=== PATIENT | female | born 1980 | race African-American/Black ===

== ENCOUNTER 2020-04-12 00:07 | Emergency (ER) | payer SELFPAY ==
[~2020-04-12] VITALS: Ht 167.6 cm; Wt 68.0 kg
[~2020-04-12 00:07] MED LIST: AZIT250T PO; PRED20TA PO
[2020-04-12] MEDS ORDERED: SULF1TAB24 PO (01:53)
--- NOTE | 2020-04-12 01:54 | PHYS DOC ---
Past Medical History Past Medical History: Hypertension Additional Past Medical Histor: NON COMPLIANT HTN Past Surgical History: No Surgical History Smoking Status: Current Every Day Smoker Alcohol Use: Occasionally Drug Use: None General Adult EDM: Chief Complaint: DENTAL PROBLEM HPI: HPI: Female Patient is a 39 year old female who presents with complaints of dental pain. Patient reports this been going on for at least a week. However tonight is gotten to the point where she is looking for some intervention. She points to the right mandibular bicuspid. She denies any fever, chills or sweats. She is having some pain with chewing. She is not having any difficulty with p.o. intake however. No nausea no vomiting, no diarrhea. She describes the pain is achy, constant and nonradiating Review of Systems: Review of Systems: Constitutional: Denies fever or chills. [] Eyes: Denies change in visual acuity. [] HENT: Denies nasal congestion or sore throat. [] Respiratory: Denies cough or shortness of breath. [] Cardiovascular: Denies chest pain or edema. [] GI: Denies abdominal pain, nausea, vomiting, bloody stools or diarrhea. [] [] Heart Score: Risk Factors: Risk Factors: DM, Current or recent (<one month) smoker, HTN, HLP, family history of CAD, obesity. Risk Scores: Score 0 - 3: 2.5% MACE over next 6 weeks - Discharge Home Score 4 - 6: 20.3% MACE over next 6 weeks - Admit for Clinical Observation Score 7 - 10: 72.7% MACE over next 6 weeks - Early Invasive Strategies Allergies: Allergies: Allergies Coded Allergies Type Severity Reaction Last Updated Verified No Known Drug Allergies 04/21/19 No Physical Exam: PE: Constitutional: Well developed, well nourished, no acute distress, non-toxic appearance. [] HENT: Normocephalic, atraumatic, bilateral external ears normal, oropharynx moist, no oral exudates, nose normal. There was no asymmetry of the face, there was no gingival swelling or pointing abscess, tenderness of the bicuspid. Fl oor the mouth was unremarkable. [] Eyes: PERRLA, EOMI, conjunctiva normal, no discharge. [] Neck: Normal range of motion, no tenderness, supple, no stridor. [] [] Current Patient Data: Vital Signs: Vital Signs Date Time Temp Pulse Resp B/P (MAP) Pulse Ox O2 Delivery O2 Flow Rate FiO2 04/12/20 01:25 98.3 85 18 150/100 (117) 98 Room Air 98.3 EKG: EKG: [] Radiology/Procedures: Radiology/Procedures: [] Course & Med Decision Making: Course & Med Decision Making Pertinent Labs and Imaging studies reviewed. (See chart for details) 0152-patient was seen and examined. No evidence of an exigent medical or surgical problems identified at this time. I discussed reasons to return, treatment plan and need for follow-up. [] Dragon Disclaimer: Dragon Disclaimer: This electronic medical record was generated, in whole or in part, using a voice recognition dictation system. Departure Departure Disposition: HOME, SELF-CARE Condition: STABLE Referrals: NO PCP (PCP) Patient Instructions: Dental Caries Scripts Sulfamethoxazole/Trimethoprim (BACTRIM DS TABLET) 1 Each Tablet 1 TAB PO BID for 7 Days, #14 TAB 0 Refills Prov: JOVAN MCKENZIE MD 04/12/20 Justicifation of Admission Dx: Justifications for Admission: Justification of Admission Dx: N/A JOVAN MCKENZIE MD Apr 12, 2020 01:54
[2020-04-12] MEDS ORDERED: KETOROLAC 60 MG/2 ML VIAL. IM ONE (02:00)
[2020-04-12] MEDS ORDERED: SMZ/TMP 800/160MG TABLET. PO ONE (02:00)
[2020-04-12 02:26] VITALS: BP 170/101
== END 2020-04-12 02:26 | disposition home or self-care (01) ==
LOC: ER 00:07
DX: K08.89 Other specified disorders of teeth and supporting structures (principal); I10 Essential (primary) hypertension; F17.200 Nicotine dependence, unspecified, uncomplicated
CPT/HCPCS: 96372; 99283; J1885

== ENCOUNTER 2020-06-13 01:28 | Emergency (ER) | payer SELFPAY ==
[~2020-06-13] VITALS: Ht 160 cm; Wt 81.8 kg
[~2020-06-13 01:28] MED LIST changes: +SULF1TAB24 PO
[2020-06-13 02:06] LABS: BASO # 0.1 x10^3/uL (0.0-0.2); BASO % 1 % (0-3); EOS # 0.2 x10^3/uL (0.0-0.7); EOS % 3 % (0-3); HEMATOCRIT 33.9 % (36.0-47.0); LYMPH # 1.7 x10^3/uL (1.0-4.8); LYMPH % 28 % (24-48); MEAN CORPUSCULAR HEMOGLOBIN 26 pg (25-35); MEAN CORPUSCULAR HGB CONC 33 g/dL (31-37); MEAN CORPUSCULAR VOLUME 79 fL (79-100); MONO # 0.6 x10^3/uL (0.0-1.1); MONO % 9 % (0-9); NEUT # 3.6 x10^3/uL (1.8-7.7); NEUT % 59 % (31-73); PLATELET COUNT 428 x10^3/uL (140-400); RED BLOOD COUNT 4.28 x10^6/uL (3.50-5.40); RED CELL DISTRIBUTION WIDTH 15.3 % (11.5-14.5); WHITE BLOOD COUNT 6.1 x10^3/uL (4.0-11.0)
[2020-06-13 02:21] LABS: ANION GAP 9 (6-14); BLOOD UREA NITROGEN 11 mg/dL (7-20); CALCIUM 9.2 mg/dL (8.5-10.1); CARBON DIOXIDE 26 mmol/L (21-32); CHLORIDE 101 mmol/L (98-107); CREATININE 0.7 mg/dL (0.6-1.0); GFR 112.7; GLUCOSE 120 mg/dL (70-99); SODIUM 136 mmol/L (136-145)
[2020-06-13 02:27] LABS: ALBUMIN 3.6 g/dL (3.4-5.0); ALK PHOS 88 U/L (46-116); ALT (SGPT) 29 U/L (14-59); AST (SGOT) 22 U/L (15-37); DIRECT BILIRUBIN < 0.1 mg/dL (0.0-0.2); LIPASE 73 U/L (73-393); MAGNESIUM 2.1 mg/dL (1.8-2.4); TOTAL BILIRUBIN 0.2 mg/dL (0.2-1.0); TOTAL PROTEIN 7.9 g/dL (6.4-8.2)
[2020-06-13] MEDS ORDERED: diphenhydrAMINE 50 MG/ML VIAL IVP ONE (02:30)
[2020-06-13] MEDS ORDERED: PROCHLORPERAZINE 10 MG/2 ML VIAL. IV ONE (02:30)
[2020-06-13] MEDS ORDERED: DEXAMETHASONE SOD PHOS 20 MG/5 ML VIAL. IV ONE (02:30)
[2020-06-13] MEDS ORDERED: IV NORMAL SALINE 1000ML BAG 1,000 ML IV ONE (02:30)
[2020-06-13 02:45] LABS: BILIRUBIN,URINE NEGATIVE (NEG); CLARITY,URINE CLEAR; COLOR,URINE YELLOW; NITRITE,URINE NEGATIVE (NEG); PROTEIN,URINE NEGATIVE (NEG-TRACE); UROBILINOGEN,URINE 0.2 mg/dL (0.2 mg/dL)
[2020-06-13 03:10] LABS: PREG TEST PT QUAL NEGATIVE (NEG)
[2020-06-13 03:26] LABS: BACTERIA,URINE FEW /HPF (0-FEW); RBC,URINE OCC /HPF (0-2); WBC,URINE OCC /HPF (0-4)
--- NOTE | 2020-06-13 03:29 | RAD ---
CT head without contrast PQRS statement: CT scans at this facility use dose reduction including either automated exposure control, iterative reconstructions, and /or weight based radiation dosing via mA and kV modification when appropriate to reduce radiation dose to as low as reasonably achievable. HISTORY: Headache. FINDINGS: No intracranial hemorrhage, mass effect, hydrocephalus or infarction. There is streak artifact from the skull base across the irene resulting in indistinct density at the left prepontine cistern and ventral surface of the irene image 7, a small mass at this location would be difficult to exclude given the density of the artifact present at this location. No acute ischemic changes evident. Dense opacification of the right maxillary, ethmoid and sphenoid and frontal sinuses. Orbits, mastoids and bones are unremarkable. IMPRESSION: 1. Extensive right maxillary, sphenoid, ethmoid and frontal sinus disease with dense opacities suggesting inspissated secretions or allergic fungal sinus disease. 2. Indistinct density along the left prepontine cistern at a region of extensive streak artifact from the skull base, likely attributable to the extensive artifact present, a small mass at this location cannot be excluded. There is no mass effect upon the brainstem evident. Electronically signed by: Santosh Melgoza MD (06/13/2020 3:26 AM) [facility]
[2020-06-13 03:59] LABS: BARBITURATES NEG (NEG); BENZODIAZEPINES NEG (NEG); CANNABINOIDS NEG (NEG); COCAINE NEG (NEG); METHADONE NEG (NEG); OPIATES NEG (NEG); PHENCYCLIDINE NEG (NEG)
--- NOTE | 2020-06-13 04:07 | PHYS DOC ---
Past Medical History Past Medical History: Hypertension Additional Past Medical Histor: NON COMPLIANT HTN Past Surgical History: No Surgical History Smoking Status: Current Every Day Smoker Alcohol Use: Heavy Additional Information: DRINKS WHISKEY DAILY Drug Use: None Social History Narrative: ECSTASY General Adult EDM: Chief Complaint: HEADACHE HPI: HPI: 39-year-old female past medical history of hypertension (takes no daily routine medications, has no PMD), presents the ED with complaints of gradual onset left- sided headache that started yesterday but worsened after she did ecstasy and drink alcohol. Reports associated sinus pressure and is taking some "OTC sinus meds." No routine primary care physician. No recent antibiotics. Review of Systems: Review of Systems: Constitutional: Denies fever or chills. [] Eyes: Denies change in visual acuity. [] Or visual loss HENT: Denies nasal congestion or sore throat. [] Respiratory: Denies cough or shortness of breath. [] Cardiovascular: Denies chest pain or edema. [] GI: Denies abdominal pain, nausea, vomiting, bloody stools or diarrhea. [] : Denies dysuria. [] Musculoskeletal: Denies back pain or joint pain. [] Integument: Denies rash. [] Neurologic: Denies focal weakness or sensory changes. [] Or neck stiffness Endocrine: Denies polyuria or polydipsia. [] Lymphatic: Denies swollen glands. [] Psychiatric: Denies depression or anxiety. [] Heart Score: Risk Factors: Risk Factors: DM, Current or recent (<one month) smoker, HTN, HLP, family history of CAD, obesity. Risk Scores: Score 0 - 3: 2.5% MACE over next 6 weeks - Discharge Home Score 4 - 6: 20.3% MACE over next 6 weeks - Admit for Clinical Observation Score 7 - 10: 72.7% MACE over next 6 weeks - Early Invasive Strategies Current Medications: Current Medications Medications (Trade) Dose Ordered Sig/Julieth Start Time Stop Time Status Last Admin Dose Admin Dexamethasone Sodium Phosphate (Decadron) 10 mg 1X ONCE 06/13/20 02:30 06/13/20 02:31 DC 06/13/20 02:23 10 MG Diphenhydramine HCl (Benadryl) 25 mg 1X ONCE 06/13/20 02:30 06/13/20 02:31 DC 06/13/20 02:21 25 MG Prochlorperazine Edisylate (Compazine) 10 mg 1X ONCE 06/13/20 02:30 06/13/20 02:31 DC 06/13/20 02:18 10 MG Sodium Chloride 1,000 ml @ 1,000 mls/hr 1X ONCE 06/13/20 02:30 06/13/20 03:29 DC 06/13/20 02:22 1,000 MLS/HR Allergies: Allergies: Allergies Coded Allergies Type Severity Reaction Last Updated Verified No Known Drug Allergies 04/21/19 No Physical Exam: PE: Constitutional: Well developed, well nourished, no acute distress, non-toxic appearance. [] HENT: Normocephalic, atraumatic, bilateral external ears normal, oropharynx moist, no oral exudates, nose normal. [] Eyes: PERRLA, EOMI, conjunctiva normal, no discharge. [] Neck: Normal range of motion, no tenderness, supple, no stridor. [] Cardiovascular: Tachycardic, no murmur [] Lungs & Thorax: Bilateral breath sounds clear to auscultation [] Abdomen: Bowel sounds normal, soft, no tenderness, no masses, no pulsatile masses. [] Skin: Warm, dry, no erythema, no rash. [] Back: No tenderness, no CVA tenderness. [] Extremities: No tenderness, no cyanosis, no clubbing, ROM intact, no edema. [] Neurologic: Alert and oriented X 3, normal motor function, normal sensory function, no focal deficits noted. [] Psychologic: Affect normal, judgement normal, mood normal. [] Current Patient Data: Labs: Laboratory Tests Test 06/13/20 00:25 06/13/20 01:55 06/13/20 02:00 06/13/20 02:33 Urine Collection Type Unknown Urine Color Yellow Urine Clarity Clear Urine pH 6.0 (<5.0-8.0) Urine Specific [place] <=1.005 (1.000-1.030) Urine Protein Negative mg/dL (NEG-TRACE) Urine Glucose (UA) Negative mg/dL (NEG) Urine Ketones (Stick) Negative mg/dL (NEG) Urine Blood Negative (NEG) Urine Nitrite Negative (NEG) Urine Bilirubin Negative (NEG) Urine Urobilinogen Dipstick 0.2 mg/dL (0.2 mg/dL) Urine Leukocyte Esterase Negative (NEG) Urine RBC Occ /HPF (0-2) Urine WBC Occ /HPF (0-4) Urine Squamous Epithelial Cells Occ /LPF Urine Bacteria Few /HPF (0-FEW) Ethyl Alcohol Level < 10 mg/dL (0-10) White Blood Count 6.1 x10^3/uL (4.0-11.0) Red Blood Count 4.28 x10^6/uL (3.50-5.40) Hemoglobin 11.0 g/dL (12.0-15.5) L Hematocrit 33.9 % (36.0-47.0) L Mean Corpuscular Volume 79 fL (79-100) Mean Corpuscular Hemoglobin 26 pg (25-35) Mean Corpuscular Hemoglobin Concent 33 g/dL (31-37) Red Cell Distribution Width 15.3 % (11.5-14.5) H Platelet Count 428 x10^3/uL (140-400) H Neutrophils (%) (Auto) 59 % (31-73) Lymphocytes (%) (Auto) 28 % (24-48) Monocytes (%) (Auto) 9 % (0-9) Eosinophils (%) (Auto) 3 % (0-3) Basophils (%) (Auto) 1 % (0-3) Neutrophils # (Auto) 3.6 x10^3/uL (1.8-7.7) Lymphocytes # (Auto) 1.7 x10^3/uL (1.0-4.8) Monocytes # (Auto) 0.6 x10^3/uL (0.0-1.1) Eosinophils # (Auto) 0.2 x10^3/uL (0.0-0.7) Basophils # (Auto) 0.1 x10^3/uL (0.0-0.2) Sodium Level 136 mmol/L (136-145) Potassium Level 3.0 mmol/L (3.5-5.1) L Chloride Level 101 mmol/L (98-107) Carbon Dioxide Level 26 mmol/L (21-32) Anion Gap 9 (6-14) Blood Urea Nitrogen 11 mg/dL (7-20) Creatinine 0.7 mg/dL (0.6-1.0) Estimated GFR (Cockcroft-Gault) 112.7 Glucose Level 120 mg/dL (70-99) H Calcium Level 9.2 mg/dL (8.5-10.1) Magnesium Level 2.1 mg/dL (1.8-2.4) Total Bilirubin 0.2 mg/dL (0.2-1.0) Direct Bilirubin < 0.1 mg/dL (0.0-0.2) Aspartate Amino Transferase (AST) 22 U/L (15-37) Alanine Aminotransferase (ALT) 29 U/L (14-59) Alkaline Phosphatase 88 U/L (46-116) Troponin I Quantitative < 0.017 ng/mL (0.000-0.055) Total Protein 7.9 g/dL (6.4-8.2) Albumin 3.6 g/dL (3.4-5.0) Lipase 73 U/L (73-393) Serum Test, Qualitative Negative (NEG) POC Urine HCG, Qualitative Hcg negative (Negative) Laboratory Tests 06/13/20 02:00 Laboratory Tests 06/13/20 02:00 Vital Signs: Vital Signs Date Time Temp Pulse Resp B/P (MAP) Pulse Ox O2 Delivery O2 Flow Rate FiO2 06/13/20 01:32 98.5 129 18 208/125 (152) 99 Room Air 98.5 EKG: EKG: Sinus tachycardia 119 bpm, no axis deviation, normal intervals, T wave inversion lead III, no ST elevations or ST depressions Radiology/Procedures: Radiology/Procedures: IMAGING REPORT Signed PATIENT: IMMANUEL STEPHENSON ACCOUNT: [id number] : 1980 LOCATION: ER AGE: 39 SEX: F EXAM STATUS: REG ER ORD. PHYSICIAN: GRETA MOREL DO REASON: heaadache PROCEDURE: CT HEAD WO CONTRAST CT head without contrast PQRS statement: CT scans at this facility use dose reduction including either automated exposure control, iterative reconstructions, and /or weight based radiation dosing via mA and kV modification when appropriate to reduce radiation dose to as low as reasonably achievable. HISTORY: Headache. FINDINGS: No intracranial hemorrhage, mass effect, hydrocephalus or infarction. There is streak artifact from the skull base across the irene resulting in indistinct density at the left prepontine cistern and ventral surface of the irene image 7, a small mass at this location would be difficult to exclude given the density of the artifact present at this location. No acute ischemic changes evident. Dense opacification of the right maxillary, ethmoid and sphenoid and frontal sinuses. Orbits, mastoids and bones are unremarkable. IMPRESSION: 1. Extensive right maxillary, sphenoid, ethmoid and frontal sinus disease with dense opacities suggesting inspissated secretions or allergic fungal sinus disease. 2. Indistinct density along the left prepontine cistern at a region of extensive streak artifact from the skull base, likely attributable to the extensive artifact present, a small mass at this location cannot be excluded. There is no mass effect upon the brainstem evident. Electronically signed by: Stephanie Chauhan MD (06/13/2020 3:26 AM) [facility] [place] DICTATED and SIGNED BY: STEPHANIE CHAUHAN MD DATE: 06/13/20 0326 Course & Med Decision Making: Course & Med Decision Making Pertinent Labs and Imaging studies reviewed. (See chart for details) Concern for a gradual onset headache, worsened with alcohol and ecstasy use. Patient was treated with migraine cocktail. Repeat HR 87. Headache almost fully resolved. Patient with no immunocompromised state. CT imaging concerning for possible fungal pansinusitis. Patient on no prior antibiotics. Reports long complicated history of sinusitis, annual infections. Currently has had inter mittent sinus pressure for 2 months with no antibiotics. Will send fungal culture. CT reports printed for pt to follow-up with primary care physician- patient aware she may require antifungals. Will start patient on 2 weeks of antibiotics with very strict ED return precautions for worsening headache, neck stiffness, neuro deficits, blurry vision or fever. Encouraged urgent outpatient follow-up with PMD. Life-threatening processes were considered but are low suspicion at this time, given history and physical exam. Pt was educated on all prescription medications and adverse effects. All patient's questions were answered and pt was stable at time of discharge. Life/limb-threatening differential includes but is not limited to, meningitis, encephalitis, intracranial hemorrhage, obstructive hydrocephaly, CVA, carbon oxide poisoning, cerebral or cavernous venous thrombosis, hypertensive chanelle rgency, preeclampsia, giant cell arteritis, glaucoma, carotid or vertebral artery dissection, superior vena cava syndrome, infection, space-occupying lesions I spoken with the patient and her caregivers. I explained the patient's condition, diagnoses and treatment plan based on the information available to me at this time. I have answered the patient and her caregiver's questions and addressed any concerns. The patient and her caregivers have a good understanding of patient's diagnosis, condition and treatment plan as can be expected at this point. Vital signs have been stable. Patient's condition is stable and appropriate for discharge from the emergency department. Patient will pursue further outpatient evaluation with primary care physician or other designated or consulting physician as outlined in the discharge instructions. The patient and/or caregivers are agreeable to this plan of care and follow-up instructions have been explained in detail. The patient and/or caregivers have received these instructions in written form and have expressed an understanding of the discharge instructions. The patient and/or caregivers are aware that any significant change of condition or worsening of symptoms should prompt immediate return to this or the closest emergency department or call to 911. Deven Disclaimer: Deven Disclaimer: This electronic medical record was generated, in whole or in part, using a voice recognition dictation system. Departure Departure Impression: Primary Impression: Sinusitis Additional Impressions: Headache Polysubstance abuse Hypokalemia Disposition: 01 DC HOME SELF CARE/HOMELESS Condition: STABLE Referrals: NO PCP (PCP) FOLLOW UP WITH FAMILY MEDICINE: -to consider starting antifungals for sinusitis/potassium check Family Medicine Address: [address] [place] [address] Patient Instructions: General Headache Without Cause, Sinusitis Additional Instructions: EMERGENCY DEPARTMENT GENERAL DISCHARGE INSTRUCTIONS Thank you for coming to [facility] Emergency Department (ED) today and trusting us with you care. We trust that you had a positive experience in our Emergency Department. If you wish to speak to the department management, you may call the Director at [phone]. YOUR FOLLOW UP INSTRUCTIONS ARE FOLLOWS: 1. Do you have a private Doctor? If you do not have a private doctor, please ask for a resource list of physicians or clinics that may be able to assist you with follow up care. 2. The Emergency Physicain has interpreted your x-rays. The X-Ray specialist will also review them. If there is a change in the findings, you will be notified in 48 hours when at all possible. 3. A lab test or culture has been done, your results will be reviewed and you will be notified if you need a change in treatment. ADDITIONAL INSTRUCTIONS AND INFORMATION: 1. Your care today has been supervised by a physician who is specially trained in emergency care. Many problems require more than one evaluation for a complete diagnosis and treatment. We recommend that you schedule your follow up appointment as recommended to ensure complete treatment of you illness or injury. If you are unable to obtain follow up care and continue to have a problem, or if your condition worsens, we recommend that you return to the ED. 2. We are not able to safely determine your condition over the phone nor are we able to give sound medical advice over the phone. For these safety reasons, if you call for medical advice we will ask you to come to the ED for further evaluation. 3. If you have any questions regarding these discharge instructions please call the ED at [phone]. SAFETY INFORMATION: In the interest of safety, wellness, and injury prevention; we encourage you to wear your sealbelt, if you smoke; quite smoking, and we encourage family to use a protective helmet for bicycling and other sporting events that present an increased risk for head injury. IF YOUR SYMPTOMS WORSEN OR NEW SYMPTOMS DEVELOP, OR YOU HAVE CONCERNS ABOUT YOUR CONDITION; OR IF YOUR CONDITION WORSENS WHILE YOU ARE WAITING FOR YOUR FOLLOW UP APPOINTMENT; EITHER CONTACT YOUR PRIMARY CARE DOCTOR, THE PHYSICIAN WHOSE NAME AND NUMBER YOU WERE GIVEN, OR RETURN TO THE ED IMMEDIATELY. Scripts Amoxicillin/Potassium Clav (AUGMENTIN 875-125 TABLET) 1 Each Tablet 1 TAB PO Q12HR for 14 Days, #28 TAB Prov: GRETA MOREL DO 06/13/20 GRETA MOREL DO Jun 13, 2020 04:07
[2020-06-13 04:15] LABS: AMPHETAMINE/METHAMPHETAMINE NEG (NEG)
--- NOTE | 2020-06-13 04:32 | RAD ---
AP chest x-ray HISTORY: Headache. FINDINGS: Heart size normal. Mediastinal silhouette is normal. Calcified granulomas left hilum and upper lobe apex. No pneumothorax, pulmonary opacities or pleural effusions. Bones are unremarkable. IMPRESSION: No acute process. Electronically signed by: Santosh Melgoza MD (06/13/2020 4:30 AM) [facility]
[2020-06-13] MEDS ORDERED: AMOX1TAB61 PO (06:12)
[2020-06-13] MEDS ORDERED: POTASSIUM CHLORIDE 20 MEQ TABLET.ER. PO ONE (06:30)
[2020-06-13 06:51] VITALS: BP 178/108
--- NOTE | 2020-06-13 07:29 | EKG ---
[facility] [address] [place] [address] Test Date: 2020-06-13 Test Time: 01:48:14 Pat Name: IMMANUEL STEPHENSON Department: Room: Gender: F Sheep Farmer: : 1980 Requested By: GRETA MOREL Order Number: [id number] Reading MD: Measurements Intervals [place] Rate: 119 P: 34 W[place]: 126 QRS: 35 QRSD: 100 T: 31 QT: 326 QTc: 459 Interpretive Statements SINUS TACHYCARDIA LEFT ATRIAL ABNORMALITY ABNORMAL ECG RI6.02 No previous ECG available for comparison
== END 2020-06-13 06:53 | disposition home or self-care (01) ==
LOC: ER 01:28
DX: J32.9 Chronic sinusitis, unspecified (principal); R51.9 Headache, unspecified; E87.6 Hypokalemia; F19.10 Other psychoactive substance abuse, uncomplicated; I10 Essential (primary) hypertension; F17.200 Nicotine dependence, unspecified, uncomplicated; F10.10 Alcohol abuse, uncomplicated
CPT/HCPCS: 36415; 70450; 71045; 80048; 80076; 80307; 81001; 81025; 83690; 83735; 84484; 84703; 85025; 93005; 96361; 96374; 96375; 99285; G0480; J0780; J1100; J1200; J7030